=== PATIENT | female | born 1945 | race Caucasian/White ===

== ENCOUNTER → 2020-11-04 09:51 | Outpatient (BNVA) | payer MEDICARE, SELFPAY | PROVIDERS: Visit Provider Family Medicine | DX: K21.9 Gastro-esophageal reflux disease without esophagitis (principal); K76.9 Liver disease, unspecified; Z13.1 Encounter for screening for diabetes mellitus; Z13.6 Encounter for screening for cardiovascular disorders; J44.9 Chronic obstructive pulmonary disease, unspecified; E78.2 Mixed hyperlipidemia | CPT/HCPCS: 80053; 80061; 85025 ==

== ENCOUNTER → 2021-03-31 10:49 | Outpatient (BNVA) | payer MEDICARE, MEDICAID, SELFPAY | PROVIDERS: PCP Family Medicine; Visit Provider Family Medicine | DX: Z78.0 Asymptomatic menopausal state (principal); Z13.820 Encounter for screening for osteoporosis; K76.9 Liver disease, unspecified | CPT/HCPCS: 82652 ==

== ENCOUNTER 2021-05-31 09:04 | Outpatient (CLI) | payer MEDICARE, MEDICAID, SELFPAY ==
--- NOTE | 2021-05-31 09:27 | US_ITS ---
WS: [id number] Complete ABDOMINAL ULTRASOUND HISTORY: K76.9 - Liver disease, unspecified COMPARISON: None available. Liver: 12.1 cm in length. Liver is normal size and echogenicity with no mass or intrahepatic dilatati on. Portal Vein: Normal hepatopetal flow with monophasic waveform. Gallbladder: Normally distended gallbladder with a large stone measuring at least 1.9 cm. No perichol ecystic fluid. Gallbladder wall thickness: 0.2 cm. Pancreas: Poorly visualized. CBD: 0.6 cm. Right kidney: 7.7 cm x 5.2 cm x 4.7 cm. Normal renal atrophy. No mass, cortical thickening or hydrone phrosis. Left kidney: 8.6 cm x 4.9 cm x 4.9 cm. Mild renal atrophy. No mass, cortical thickening or hydronephr osis. Spleen: Normal size and echogenicity. Abdominal aorta and IVC are within normal limits. No ascites. US/US abdomen complete* [id number] IMPRESSION: 1. Cholelithiasis without acute cholecystitis. 2. No bile duct dilatation. 3. Mild atrophy of each kidney.
--- NOTE | 2021-05-31 09:27 | XR_ITS ---
WS: [id number] SCREENING DEXA SCAN Official Limited Virtual CLINICAL INFORMATION: Z13.820 - Encounter for screening for osteoporosis COMPARISON: None. FINDINGS: The L1-L4 bone mineral density measures 1.248 g/cm2. This corresponds to a T score score of 0.6 and Z score of 2.5. Left femoral neck bone mineral density measures 0.991 g/cm2. This corresponds to a T score of -0.1 an d Z score of 1.8. Right femoral neck bone mineral density measures 0.919 g/cm2. This corresponds to a T score -0.7of an d Z score of 1.2. Mean femoral neck bone mineral density measures 0.955 g/cm2. This corresponds to a T score of -0.4 an d Z score of 1.5. XR/XR DEXA axial skeleton* [id number] IMPRESSION: Normal bone mineralization. Patient's FRAX calculated 10 year probability for major osteoporotic fracture i s 10.7 % and osteoporotic hip fracture is 2.2%.
== END 2021-05-31 09:05 | disposition home or self-care (01) ==
PROVIDERS: PCP Family Medicine; Visit Provider Family Medicine
DX: Z13.820 Encounter for screening for osteoporosis (principal); Z78.0 Asymptomatic menopausal state; K76.9 Liver disease, unspecified; K80.20 Calculus of gallbladder without cholecystitis without obstruction; N26.1 Atrophy of kidney (terminal)
CPT/HCPCS: 76700; 77080

== ENCOUNTER → 2021-06-07 09:59 | Outpatient (BNVA) | payer MEDICARE, MEDICAID, SELFPAY | PROVIDERS: PCP Family Medicine; Referring Provider Family Medicine; Visit Provider Surgery | DX: K21.9 Gastro-esophageal reflux disease without esophagitis (principal) | CPT/HCPCS: 99204 ==

== ENCOUNTER → 2021-09-01 10:03 | Outpatient (BNVA) | payer MEDICARE, MEDICAID, SELFPAY | PROVIDERS: PCP Family Medicine; Visit Provider Family Medicine | DX: R05.9 Cough, unspecified (principal); Z11.59 Encounter for screening for other viral diseases | CPT/HCPCS: 71046; 87635 ==

== ENCOUNTER → 2021-09-12 15:38 | Outpatient (BNVA) | payer MEDICARE, MEDICAID, SELFPAY | PROVIDERS: PCP Family Medicine; Referring Provider Family Medicine; Visit Provider Otolaryngology | DX: B37.0 Candidal stomatitis (principal); H93.13 Tinnitus, bilateral; Z87.891 Personal history of nicotine dependence | CPT/HCPCS: 99203 ==